=== PATIENT | male | born 1995 | race Caucasian/White ===

== ENCOUNTER 2018-05-09 10:11 | Emergency (ER) | payer OTHER ==
[2018-05-09 11:10] LABS: AMPHETAMINE/METHAMPHETAMINE Negative (NEGATIVE); BARBITURATES Negative (NEGATIVE); BENZODIAZEPINES Negative (NEGATIVE); CANNABINOIDS Negative (NEGATIVE); COCAINE Negative (NEGATIVE); OPIATES Negative (NEGATIVE)
== END 2018-05-09 11:47 | disposition home or self-care (01) ==
LOC: FTE 10:11
DX: Z13.9 Encounter for screening, unspecified (principal)
CPT/HCPCS: 80307; 99283